=== PATIENT | female | born 1960 | race Hispanic/Latino ===

== ENCOUNTER 2021-01-29 12:16 | Emergency (ER) | payer MEDICARE ==
[2021-01-29 13:16] VITALS: BP 110/64
[2021-01-29] MEDS ORDERED: HYDROcodone/ACETAMINOPHEN 10-325MG TAB PO ONE (14:44)
[2021-01-29 15:22] LABS: Hemoglobin 12.5 gm/dl (10.1-14.3); Mean Corpuscular HGB Conc 34 % (30-34); Mean Corpuscular Volume 92 fl (79-97); Platelet Count 170 K/mm3 (140-440); Red Blood Count 4.02 M/mm3 (3.65-5.03); Red Cell Distribution Width 13.6 % (13.2-15.2)
[2021-01-29 15:30] LABS: INR 0.98 (0.87-1.13)
[2021-01-29 15:31] LABS: Partial Thromboplastin Time 29.7 Sec. (24.2-36.6)
[2021-01-29 15:38] LABS: Blood Urea Nitrogen 9 mg/dL (7-17); Calcium 9.4 mg/dL (8.4-10.2); Hemolysis Index 7
[2021-01-29 15:39] LABS: BUN/Creatinine Ratio 15
--- NOTE | 2021-01-29 15:56 | Vascular Lab Report ---
VL venous duplex LE LT INDICATION / CLINICAL INFORMATION: left leg pain and swelling. COMPARISON: None available. FINDINGS: No evidence of deep vein thrombosis. Signer Name: Orlando Urbina MD Signed: 01/29/2021 3:51 PM Workstation Name: [id number]
--- NOTE | 2021-01-29 16:10 | Emergency Department Report ---
ED Lower Extremity HPI - General Chief Complaint: Extremity Injury, Lower Stated Complaint: LT LEG PAINS Time Seen by Provider: 01/29/21 14:21 Source: patient Mode of arrival: Ambulatory Limitations: No Limitations - History of Present Illness Initial Comments: This is a 60-year-old female nontoxic, well nourished in appearance, no acute signs of distress presents to the ED with c/o of left median knee pain and swelling 5 days. Patient stated that her grandson ran into her which developed her symptoms. Patient denies any other injuries or trauma. Patient denies any numbness, tingling, fever, chills, nausea, vomiting, chest pain, shortness of b reath, headache, stiff neck. Patient denies any joint swelling or joint redness. Patient denies decreased range of motion or abnormal gait. Patient denies any allergies. Patient denies being on blood thinners. MD Complaint: knee injury -: days(s) (5) Injury: Knee: Left Place: home Severity: mild Severity scale (0 -10): 3 Improves With: nothing Worsens With: nothing Associated Symptoms: swelling, able to partially bear weight. denies: snap/pop sensation, numbness, tingling, unable to bear weight, ambulatory - Related Data Allergies Allergy/AdvReac Type Severity Reaction Status Date / Time No Known Allergies Allergy Verified 01/29/21 13:16 ED Review of Systems ROS: Stated complaint: LT LEG PAINS Other details as noted in HPI Comment: All other systems reviewed and negative Constitutional: denies: chills, fever Eyes: denies: eye pain, eye discharge, vision change ENT: denies: ear pain, throat pain Respiratory: denies: cough, shortness of breath, wheezing Cardiovascular: denies: chest pain, palpitations Endocrine: no symptoms reported Gastrointestinal: denies: abdominal pain, nausea, diarrhea Genitourinary: denies: urgency, dysuria, discharge Musculoskeletal: denies: back pain, joint swelling, arthralgia Skin: denies: rash, lesions Neurological: denies: headache, weakness, paresthesias Psychiatric: denies: anxiety, depression Hematological/Lymphatic: denies: easy bleeding, easy bruising ED Physical Exam - General Limitations: No Limitations General appearance: alert, in no apparent distress - Head Head exam: Present: atraumatic, normocephalic - Eye Eye exam: Present: normal appearance - Neck Neck exam: Present: normal inspection, full ROM. Absent: lymphadenopathy - Respiratory Respiratory exam: Absent: respiratory distress - Cardiovascular Cardiovascular Exam: Present: regular rate - Extremities Exam Extremities exam: Present: full ROM, tenderness, normal capillary refill. A bsent: joint swelling, calf tenderness - Expanded Lower Extremity Exam Left Hip exam: Present: normal inspection, full ROM. Absent: tenderness, swelling Upper Leg exam: Present: normal inspection, full ROM. Absent: tenderness, swelling Knee exam: Present: full ROM, tenderness, swelling (Hematoma), ecchymosis, full knee extension. Absent: abrasion, laceration, deformity, crepidus, dislocation, erythema, effusion, pain w/ pronation/supination, posterior draw sign, pain/laxity with valgus, pain/laxity with varus Lower Leg exam: Present: normal inspection, full ROM. Absent: tenderness, swelling, abrasion, laceration, ecchymosis, deformity, crepidus, dislocation, erythema, palpable cord, Margarito's sign Ankle exam: Present: normal inspection, full ROM. Absent: tenderness, swelling Foot/Toe exam: Present: normal inspection, full ROM. Absent: tenderness, swelling Neuro vascular tendon exam: Present: no vascular compromise. Absent: pulse deficit, abnormal cap refill, sensory deficit, extremity cold to touch, decreased fine/light touch, foot drop, significant pain with passive ROM of distal joint Gait: Positive: observed and limited by pain 1 - Hematoma present here and tenderness here - Back Exam Back exam: Present: normal inspection, full ROM. Absent: tenderness, CVA tenderness (R), CVA tenderness (L), muscle spasm, paraspinal tenderness, vertebral tenderness, rash noted - Neurological Exam Neurological exam: Present: alert, oriented X3 - Psychiatric Psychiatric exam: Present: normal affect, normal mood - Skin Skin exam: Present: warm, dry, intact, normal color. Absent: rash ED Course Vital Signs 01/29/21 13:16 Temperature 98.2 F Pulse Rate 80 Respiratory 14 Rate Blood Pressure 110/64 [Left] O2 Sat by Pulse 100 Oximetry - Reevaluation(s) Reevaluation #1: 01/29/21 16:09 Patient is speaking in full sentences with no signs of distress noted. - Consultations Consultation #1: 01/29/21 16:09 Patient has been consulted with Dr. Valles about patient history, physical exam, and labs/doppler report and examined the patient and agrees to ED plan of care and discharge plan of care. ED Lower Extremity MDM - Lab Data Result diagrams: 01/29/21 14:48 01/29/21 14:48 Lab Results 01/29/21 01/29/21 01/29/21 Range/Units 14:48 14:48 14:52 WBC 2.2 L (4.5-11.0) K/mm3 RBC 4.02 (3.65-5.03) M/mm3 Hgb 12.5 (10.1-14.3) gm/dl Hct 37.0 (30.3-42.9) % MCV 92 (79-97) fl MCH 31 (28-32) pg MCHC 34 (30-34) % RDW 13.6 (13.2-15.2) % Plt Count 170 (140-440) K/mm3 PT 13.6 (12.2-14.9) Sec. INR 0.98 (0.87-1.13) APTT 29.7 (24.2-36.6) Sec. Sodium 137 (137-145) mmol/L Potassium 4.1 (3.6-5.0) mmol/L Chloride 103.3 (98-107) mmol/L Carbon Dioxide 26 (22-30) mmol/L Anion Gap 12 mmol/L BUN 9 (7-17) mg/dL Creatinine 0.6 (0.6-1.2) mg/dL Estimated GFR > 60 ml/min BUN/Creatinine Ratio 15 % Glucose 96 (65-100) mg/dL Calcium 9.4 (8.4-10.2) mg/dL - Radiology Data [facility] [address] [place] [address] Vascular Lab Report Signed Patient: JACKELIN ZAMORANO MR#: [id number] : 1960 Acct:[id number] Age/Sex: 60 / F ADM Date: 01/29/21 Loc: ED Attending Dr: Ordering Physician: JENNY GREER NP Date of Service: 01/29/21 Procedure(s): VL venous duplex LE LT Accession Number(s): [id number] cc: JENNY GREER NP VL venous duplex LE LT INDICATION / CLINICAL INFORMATION: left leg pain and swelling. COMPARISON: None available. FINDINGS: No evidence of deep vein thrombosis. Signer Name: Orlando Urbina MD Signed: 01/29/2021 3:51 PM Workstation Name: [id number] Transcribed By: TM Dictated By: Orlando Urbina MD Electronically Authenticated By: Orlando Urbina MD Signed Date/Time: 01/29/211550 DD/ 50 TD/TT: LEFT KNEE 3 VIEWS INDICATION: knee pain. COMPARISON: None. IMPRESSION: Osteopenia is evident. Mild tricompartmental osteoarthritic changes are identified. No acute osseous findings are appreciated. There appears to be moderate soft tissue swelling in the medial left thigh. Correlate with the patient. Signer Name: Torrey Johansen Jr, MD Signed: 01/29/2021 3:24 PM Workstation Name: [id number] - Medical Decision Making This is a 60-year-old female that presents with left knee contusion and hematoma. Patient is stable and was examined by me. I referred patient to an orthopedic doctor for further evaluation for possible MRI. X-ray and Doppler ultrasound has been obtained and dictated by the radiologist. Patient is notifi ed of the imaging reports with no questions noted by the patient. Patient does have normal gait with no tenderness and no joint swelling. No ecchymosis. no joint redness or swelling. Not warm to touch. No signs of cellulites present. Patient received Navneet wrap to left knee. Patient was instructed to RICE therapy. At time of discharge, the patient does not seem toxic or ill in appearance. No acute signs of distress noted. Patient agrees to discharge treatment plan of care. No further questions noted by the patient. Critical care attestation.: If time is entered above; I have spent that time in minutes in the direct care of this critically ill patient, excluding procedure time. ED Disposition Clinical Impression: Hematoma of left lower extremity Qualifiers: Encounter type: initial encounter Qualified Code(s): S80.12XA - Contusion of left lower leg, initial encounter Contusion of left knee Qualifiers: Encounter type: initial encounter Qualified Code(s): S80.02XA - Contusion of left knee, initial encounter Disposition: DC- TO HOME OR SELFCARE Is pt being admited?: No Does the pt Need Aspirin: No Condition: Stable Instructions: How to Use Cold Therapy, [id number] Additional Instructions: Follow-up with a orthopedic doctor in 3-5 days or if symptoms worsen and continue return to emergency room as soon as possible. Referrals: PRIMARY CARE, [Primary Care Provider] - 3-5 Days SOLITARIO STANLEY MD [Staff Physician] - 3-5 Days KELSIE MARTINEZ MD [Staff Physician] - 3-5 Days Time of Disposition: 16:29
--- NOTE | 2021-01-29 16:29 | XRay Report ---
LEFT KNEE 3 VIEWS INDICATION: knee pain. COMPARISON: None. IMPRESSION: Osteopenia is evident. Mild tricompartmental osteoarthritic changes are identified. No a cute osseous findings are appreciated. There appears to be moderate soft tissue swelling in the medi al left thigh. Correlate with the patient. Signer Name: Torrey Johansen Jr, MD Signed: 01/29/2021 4:24 PM Workstation Name: [id number]
[2021-01-29 16:50] LABS: Eosinophils % (Auto) 2.1 % (0.0-4.3); Monocytes # (Auto) 0.3 K/mm3 (0.0-0.8); Monocytes % (Auto) 10.9 % (0.0-7.3)
[2021-01-29 16:55] LABS: RBC Morphology Normal; Total Cells Counted 100
== END 2021-01-29 16:51 | disposition home or self-care (01) ==
LOC: ED 12:16
DX: S80.12XA Contusion of left lower leg, initial encounter (principal); S80.02XA Contusion of left knee, initial encounter; X58.XXXA Exposure to other specified factors, initial encounter; Y93.89 Activity, other specified; Y92.009 Unspecified place in unspecified non-institutional (private) residence as the place of occurrence of the external cause; Y99.8 Other external cause status
CPT/HCPCS: 36415; 80048; 85007; 85025; 85610; 85730